=== PATIENT | male | born 1935 | race Caucasian/White ===

== ENCOUNTER 2019-04-03 12:04 | Emergency (ER) | payer MEDICARE ==
[2019-04-03] MEDS ORDERED: methylPREDNISolone SOD SUCCI 125 MG/2 ML VIAL IV STA (12:24)
[2019-04-03] MEDS ORDERED: IPRATROPIUM-ALBUTEROL 3 ML NEB INHALATION STA (12:24)
[2019-04-03] MEDS ORDERED: SODIUM CHLORIDE 0.9% 1,000 ML IV STA (12:24)
--- NOTE | 2019-04-03 12:26 | ED ---
General Adult HPI - General Chief complaint: Shortness of Breath Stated complaint: SOB Time Seen by Provider: 04/03/19 12:13 Source: patient, RN notes reviewed Mode of arrival: ambulatory Limitations: no limitations - History of Present Illness Initial comments: Patient is a pleasant 83-year-old male presenting to the emergency Department with complaints of shortness of breath. Onset of symptoms was a couple of days ago. No cough. Dyspnea does worsen somewhat with exertion. Patient does have history of similar symptoms previously associated with emphysema. Patient has been using his inhalers at home however they're not helping a whole lot. No leg pain or leg swelling. No fevers. No chest pain. - Related Data Previous Rx's Medication Instructions Recorded Levofloxacin [Levaquin] 500 mg PO DAILY #10 tab 04/03/19 predniSONE 20 mg PO BID #10 tab 04/03/19 Allergies Allergy/AdvReac Type Severity Reaction Status Date / Time No Known Allergies Allergy Verified 04/03/19 12:06 Review of Systems ROS Statement: Those systems with pertinent positive or pertinent negative responses have been documented in the HPI. ROS Other: All systems not noted in ROS Statement are negative. Constitutional: Denies: fever, chills Eyes: Denies: eye pain ENT: Denies: ear pain Respiratory: Reports: cough, dyspnea Cardiovascular: Denies: chest pain Endocrine: Denies: fatigue Gastrointestinal: Denies: abdominal pain Genitourinary: Denies: dysuria Musculoskeletal: Denies: back pain Skin: Denies: rash Neurological: Denies: weakness Past Medical History Past Medical History: COPD, Hyperlipidemia, Hypertension Past Surgical History: Coronary Bypass/CABG, Hernia Repair General Exam Limitations: no limitations General appearance: alert, in no apparent distress Head exam: Present: normocephalic Eye exam: Present: normal appearance, PERRL ENT exam: Present: normal oropharynx Neck exam: Present: normal inspection Respiratory exam: Present: wheezes, decreased breath sounds Cardiovascular Exam: Present: regular rate, normal rhythm GI/Abdominal exam: Present: soft. Absent: tenderness Extremities exam: Present: normal inspection. Absent: pedal edema, calf tenderness Neurological exam: Present: alert Psychiatric exam: Present: normal affect, normal mood Skin exam: Present: normal color Course Vital Signs 04/03/19 04/03/19 04/03/19 12:06 12:51 12:56 Temperature 97.0 F L Pulse Rate 69 67 64 Respiratory 22 Rate Blood Pressure 152/89 O2 Sat by Pulse 95 Oximetry 04/03/19 04/03/19 04/03/19 14:09 14:33 14:52 Temperature Pulse Rate 70 73 Respiratory 18 Rate Blood Pressure O2 Sat by Pulse 90 L Oximetry - Reevaluation(s) Reevaluation #1: 04/03/19 15:18 Case was earlier discussed with Dr. Henderson covering for hospital call who recommended 2 more treatments and antibiotics and reattempt ambulation at that time. This was done and patient ambulate without difficulty. Pulse ox 99% on room air. Patient states he feels fine and is comfortable with discharge home. EKG Findings - EKG Comments: EKG Findings:: Normal sinus rhythm at 67. PVC present. DE 182. QRS 132. QT 434. QTC 450. Normal axis. Q wave in lead III. No acute ST change. Medical Decision Making - Lab Data Result diagrams: 04/03/19 12:34 04/03/19 12:34 Lab Results 04/03/19 04/03/19 Range/Units 12:34 12:34 WBC 6.6 (3.8-10.6) k/uL RBC 4.84 (4.30-5.90) m/uL Hgb 14.6 (13.0-17.5) gm/dL Hct 46.5 (39.0-53.0) % MCV 96.0 (80.0-100.0) fL MCH 30.1 (25.0-35.0) pg MCHC 31.4 (31.0-37.0) g/dL RDW 13.2 (11.5-15.5) % Plt Count 162 (150-450) k/uL Neutrophils % 66 % Lymphocytes % 19 % Monocytes % 6 % Eosinophils % 6 % Basophils % 1 % Neutrophils # 4.4 (1.3-7.7) k/uL Lymphocytes # 1.3 (1.0-4.8) k/uL Monocytes # 0.4 (0-1.0) k/uL Eosinophils # 0.4 (0-0.7) k/uL Basophils # 0.0 (0-0.2) k/uL Sodium 141 (137-145) mmol/L Potassium 4.6 (3.5-5.1) mmol/L Chloride 103 (98-107) mmol/L Carbon Dioxide 30 (22-30) mmol/L Anion Gap 8 mmol/L BUN 13 (9-20) mg/dL Creatinine 0.92 (0.66-1.25) mg/dL Est GFR (CKD-EPI)AfAm 89 (>60 ml/min/1.73 sqM) Est GFR (CKD-EPI)NonAf 77 (>60 ml/min/1.73 sqM) Glucose 89 (74-99) mg/dL Calcium 9.8 (8.4-10.2) mg/dL Magnesium 2.0 (1.6-2.3) mg/dL Total Bilirubin 0.7 (0.2-1.3) mg/dL AST 24 (17-59) U/L ALT 39 (21-72) U/L Alkaline Phosphatase 58 (38-126) U/L Total Protein 7.5 (6.3-8.2) g/dL Albumin 4.0 (3.5-5.0) g/dL Disposition Clinical Impression: Pneumonia, Acute exacerbation of chronic obstructive pulmonary disease Disposition: HOME SELF-CARE Condition: Stable Instructions (If sedation given, give patient instructions): Pneumonia (ED), Emphysema (ED) Additional Instructions: Please follow-up with primary care physician in the next day or 2 for recheck. Return for difficulty breathing, fevers, weakness, worsening symptoms or any other concerns. Prescriptions have been sent to [facility] pharmacy here. Prescriptions: Levofloxacin [Levaquin] 500 mg PO DAILY #10 tab predniSONE 20 mg PO BID #10 tab Is patient prescribed a controlled substance at d/c from ED?: No Referrals: Nonstaff,Physician [Primary Care Provider] - 1-2 days Anuj Joshua MD [Medical Doctor] - 1-2 days Time of Disposition: 15:19
[2019-04-03 13:12] LABS: Basophils % (A) 1 %; Eosinophils # (A) 0.4 k/uL (0-0.7); Eosinophils % (A) 6 %; HCT 46.5 % (39.0-53.0); HGB 14.6 gm/dL (13.0-17.5); Lymphocytes # (A) 1.3 k/uL (1.0-4.8); Lymphocytes % (A) 19 %; MCH 30.1 pg (25.0-35.0); MCHC 31.4 g/dL (31.0-37.0); Mean Platelet Volume 7.8; Monocytes # (A) 0.4 k/uL (0-1.0); Monocytes % (A) 6 %; Neutrophils # (A) 4.4 k/uL (1.3-7.7); Neutrophils % (A) 66 %; Platelet Count 162 k/uL (150-450); RBC 4.84 m/uL (4.30-5.90); RDW 13.2 % (11.5-15.5); WBC 6.6 k/uL (3.8-10.6)
--- NOTE | 2019-04-03 13:20 | XR ---
EXAMINATION TYPE: XR chest 2V DATE OF EXAM: 04/03/2019 COMPARISON: NONE TECHNIQUE: PA and lateral views submitted. HISTORY: Shortness of breath FINDINGS: Left lower lobe infiltrate and small effusion. Postoperative change and cardiac device. Atherosclerot ic change aorta. No overt failure. Hypertrophic and degenerative change of the spine. IMPRESSION: 1. Left lower lobe infiltrate and small effusion.
[2019-04-03 13:25] LABS: Calcium 9.8 mg/dL (8.4-10.2); Potassium 4.6 mmol/L (3.5-5.1); Total Bilirubin 0.7 mg/dL (0.2-1.3); Total Protein 7.5 g/dL (6.3-8.2)
[2019-04-03] MEDS ORDERED: ALBUTEROL NEBULIZED 2.5 MG/3 ML INHALATION STA ×2 (14:20→14:21)
[2019-04-03] MEDS ORDERED: cefTRIAXone IN SWFI 1,000 MG/10 ML SYRINGE IVP STA (14:21)
[2019-04-03 15:19] VITALS: BP 146/87; PULSE 83; RESP 16; TEMP 98.1
== END 2019-04-03 16:18 | disposition home or self-care (01) ==
LOC: EC 12:04
DX: J44.0 Chronic obstructive pulmonary disease with (acute) lower respiratory infection (principal); J18.9 Pneumonia, unspecified organism; J44.1 Chronic obstructive pulmonary disease with (acute) exacerbation; Z79.899 Other long term (current) drug therapy
CPT/HCPCS: 99285; 96374; 96375; 96361 ×4; 36415; 94640 ×2; 93005; 80053; 83735; 85025; 87040; 71046; J2930; J0696

== ENCOUNTER 2021-08-02 14:53 | Observation (INO) | payer MEDICARE ==
--- NOTE | 2021-08-02 16:23 | ED ---
SOB HPI - General Chief Complaint: Shortness of Breath Stated Complaint: dizzy, weakness Time Seen by Provider: 08/02/21 15:00 Source: patient, EMS, RN notes reviewed Mode of arrival: EMS - History of Present Illness Initial Comments: 86-year-old male with a history of double bypass surgery a proximal a 3 years ago history of defibrillator placement was brought in by EMS today with complaints of dizziness weakness lightheadedness for last several days also some exertional dyspnea no overt chest pain no fevers chills no sweats no palpitations no focal weakness. He was noted on monitoring from EMS to have PVCs. Patient denied any palpitations or knowledge of this. No change in his diet no change in medications recently. He believes he may be slightly dehydrated as he is not been drinking much fluids today other than coffee MD Complaint: shortness of breath - Related Data Home Medications Medication Instructions Recorded Confirmed Albuterol Inhaler [Ventolin Hfa 2 puff INHALATION RT-QID PRN 08/02/21 08/02/21 Inhaler] Albuterol Nebulized [Ventolin 2.5 mg INHALATION RT-Q6H PRN 08/02/21 08/02/21 Nebulized] Aspirin EC [Ecotrin] 325 mg PO DAILY 08/02/21 08/02/21 Atorvastatin [Lipitor] 40 mg PO DAILY 08/02/21 08/02/21 Clopidogrel [Plavix] 75 mg PO DAILY 08/02/21 08/02/21 Fluticasone/Umeclidin/Vilanter 1 puff INHALATION RT-DAILY 08/02/21 08/02/21 [Trelegy Ellipta 100-62.5-25] HYDROcodone/APAP 5-325MG [[place] 1 tab PO Q8H PRN 08/02/21 08/02/21 5-325] Metoprolol Tartrate [Lopressor] 12.5 mg PO BID 08/02/21 08/02/21 Mometasone/Formoterol [Dulera 200 2 puff INHALATION RT-BID 08/02/21 08/02/21 Mcg-5 Mcg Inhaler] Pantoprazole [Protonix] 40 mg PO DAILY 08/02/21 08/02/21 Allergies Allergy/AdvReac Type Severity Reaction Status Date / Time No Known Allergies Allergy Verified 08/02/21 16:36 Review of Systems ROS Statement: Those systems with pertinent positive or pertinent negative responses have been documented in the HPI. ROS Other: All systems not noted in ROS Statement are negative. Past Medical History Past Medical History: COPD, Hyperlipidemia, Hypertension History of Any Multi-Drug Resistant Organisms: None Reported Past Surgical History: Coronary Bypass/CABG, Hernia Repair Past Psychological History: No Psychological Hx Reported Smoking Status: Former smoker Past Alcohol Use History: Daily Past Drug Use History: None Reported General Exam - General Exam Comments Initial Comments: This is a well-developed well-nourished awake alert oriented times 3 male General appearance: alert, in no apparent distress Head exam: Present: atraumatic, normocephalic, normal inspection Eye exam: Present: normal appearance, PERRL, EOMI. Absent: scleral icterus, conjunctival injection, periorbital swelling ENT exam: Present: mucous membranes dry Neck exam: Present: normal inspection, full ROM, other (No stridor JVD or bruits). Absent: tenderness, meningismus, lymphadenopathy Respiratory exam: Present: normal lung sounds bilaterally. Absent: respiratory distress, wheezes, rales, rhonchi, stridor Cardiovascular Exam: Present: regular rate, normal rhythm, normal heart sounds. Absent: systolic murmur, diastolic murmur, rubs, gallop, clicks GI/Abdominal exam: Present: soft, normal bowel sounds. Absent: distended, tenderness, guarding, rebound, rigid, bruit, pulsatile mass Extremities exam: Present: normal inspection, full ROM, normal capillary refill. Absent: tenderness, pedal edema, joint swelling, calf tenderness Back exam: Present: normal inspection Neurological exam: Present: alert, oriented X3, CN II-XII intact Psychiatric exam: Present: normal affect, normal mood Skin exam: Present: warm, dry, intact, normal color. Absent: rash Course Vital Signs 08/02/21 08/02/21 15:11 18:29 Temperature 98.1 F 97.6 F Pulse Rate 71 73 Respiratory 14 14 Rate Blood Pressure 162/95 153/80 O2 Sat by Pulse 97 97 Oximetry Medical Decision Making - Medical Decision Making I did discuss the findings with the patient no PE and imaging evidence of congestive failure does have hypokalemia suspicion for acute coronary syndrome symptoms with exertional dyspnea and light of his history. Patient be admitted to Dr. Villatoro - Lab Data Result diagrams: 08/02/21 16:26 08/02/21 16:26 Lab Results 08/02/21 08/02/21 08/02/21 Range/Units 16:26 16:26 16:26 WBC 7.0 (3.8-10.6) k/uL RBC 4.74 (4.30-5.90) m/uL Hgb 14.8 (13.0-17.5) gm/dL Hct 44.6 (39.0-53.0) % MCV 94.1 (80.0-100.0) fL MCH 31.2 (25.0-35.0) pg MCHC 33.1 (31.0-37.0) g/dL RDW 13.3 (11.5-15.5) % Plt Count 170 (150-450) k/uL MPV 9.5 Neutrophils % 75 % Lymphocytes % 14 % Monocytes % 6 % Eosinophils % 2 % Basophils % 1 % Neutrophils # 5.2 (1.3-7.7) k/uL Lymphocytes # 1.0 (1.0-4.8) k/uL Monocytes # 0.4 (0-1.0) k/uL Eosinophils # 0.2 (0-0.7) k/uL Basophils # 0.1 (0-0.2) k/uL PT 12.0 (9.0-12.0) sec INR 1.1 (<1.2) APTT 29.1 (22.0-30.0) sec D-Dimer 1.17 H (<0.60) mg/L FEU Sodium 138 (137-145) mmol/L Potassium 3.2 L (3.5-5.1) mmol/L Chloride 95 L (98-107) mmol/L Carbon Dioxide 33 H (22-30) mmol/L Anion Gap 10 mmol/L BUN 23 H (9-20) mg/dL Creatinine 0.96 (0.66-1.25) mg/dL Est GFR (CKD-EPI)AfAm 83 (>60 ml/min/1.73 sqM) Est GFR (CKD-EPI)NonAf 72 (>60 ml/min/1.73 sqM) Glucose 91 (74-99) mg/dL Plasma Lactic Acid Daniel (0.7-2.0) mmol/L Calcium 9.4 (8.4-10.2) mg/dL Magnesium 1.9 (1.6-2.3) mg/dL Total Bilirubin 0.9 (0.2-1.3) mg/dL AST 29 (17-59) U/L ALT 29 (4-49) U/L Alkaline Phosphatase 57 (38-126) U/L Troponin I (0.000-0.034) ng/mL NT-Pro-B Natriuret Pep pg/mL Total Protein 7.2 (6.3-8.2) g/dL Albumin 4.1 (3.5-5.0) g/dL 08/02/21 08/02/21 08/02/21 Range/Units 16:26 16:26 16:26 WBC (3.8-10.6) k/uL RBC (4.30-5.90) m/uL Hgb (13.0-17.5) gm/dL Hct (39.0-53.0) % MCV (80.0-100.0) fL MCH (25.0-35.0) pg MCHC (31.0-37.0) g/dL RDW (11.5-15.5) % Plt Count (150-450) k/uL MPV Neutrophils % % Lymphocytes % % Monocytes % % Eosinophils % % Basophils % % Neutrophils # (1.3-7.7) k/uL Lymphocytes # (1.0-4.8) k/uL Monocytes # (0-1.0) k/uL Eosinophils # (0-0.7) k/uL Basophils # (0-0.2) k/uL PT (9.0-12.0) sec INR (<1.2) APTT (22.0-30.0) sec D-Dimer (<0.60) mg/L FEU Sodium (137-145) mmol/L Potassium (3.5-5.1) mmol/L Chloride (98-107) mmol/L Carbon Dioxide (22-30) mmol/L Anion Gap mmol/L BUN (9-20) mg/dL Creatinine (0.66-1.25) mg/dL Est GFR (CKD-EPI)AfAm (>60 ml/min/1.73 sqM) Est GFR (CKD-EPI)NonAf (>60 ml/min/1.73 sqM) Glucose (74-99) mg/dL Plasma Lactic Acid Daniel 1.4 (0.7-2.0) mmol/L Calcium (8.4-10.2) mg/dL Magnesium (1.6-2.3) mg/dL Total Bilirubin (0.2-1.3) mg/dL AST (17-59) U/L ALT (4-49) U/L Alkaline Phosphatase (38-126) U/L Troponin I <0.012 (0.000-0.034) ng/mL NT-Pro-B Natriuret Pep 2040 pg/mL Total Protein (6.3-8.2) g/dL Albumin (3.5-5.0) g/dL - EKG Data -: EKG Interpreted by Me EKG shows normal: sinus rhythm EKG Comments: Sinus rhythm rate 77 appear interval 195 QRS duration 137 QT since QTC 434/465 evidence a multifocal PVCs interventricular conduction delay - Radiology Data Radiology results: report reviewed (Imaging reviewed evidence of pulmonary vascular congestion), image reviewed Disposition Clinical Impression: CHF (congestive heart failure), Exertional dyspnea, Hypokalemia, Premature ventricular contractions, Pleural effusion, left Disposition: ADMITTED IP TO THIS HOSP Condition: Fair Referrals: Dimitry Barajas MD [Primary Care Provider] - 1-2 days Decision Date: 08/02/21 Decision Time: 18:40
--- NOTE | 2021-08-02 16:48 | XR ---
EXAMINATION TYPE: XR chest 2V DATE OF EXAM: 08/02/2021 COMPARISON: Chest x-ray April 03, 2019 HISTORY: Shortness of breath TECHNIQUE: Frontal and lateral views of the chest are obtained. FINDINGS: Overlying sternal wires and mediastinal clips are redemonstrated. Persisting cardiomegaly w ith new dual lead pacemaker/defibrillator. Chronic parenchymal changes bilaterally redemonstrated wit hout new focal airspace opacity or pneumothorax seen. Chronic lateral left basilar opacity could refl ect pleural thickening or possible small effusion is redemonstrated and stable. IMPRESSION: Chronic changes and cardiomegaly without new acute pulmonary process.
[2021-08-02 16:53] LABS: Basophils # (A) 0.1 k/uL (0-0.2); Basophils % (A) 1 %; Eosinophils # (A) 0.2 k/uL (0-0.7); Eosinophils % (A) 2 %; HCT 44.6 % (39.0-53.0); HGB 14.8 gm/dL (13.0-17.5); Lymphocytes % (A) 14 %; MCH 31.2 pg (25.0-35.0); MCHC 33.1 g/dL (31.0-37.0); MCV 94.1 fL (80.0-100.0); Mean Platelet Volume 9.5; Monocytes # (A) 0.4 k/uL (0-1.0); Monocytes % (A) 6 %; Neutrophils # (A) 5.2 k/uL (1.3-7.7); Neutrophils % (A) 75 %; Platelet Count 170 k/uL (150-450); RBC 4.74 m/uL (4.30-5.90); RDW 13.3 % (11.5-15.5)
[2021-08-02 17:02] LABS: Albumin 4.1 g/dL (3.5-5.0); Calcium 9.4 mg/dL (8.4-10.2); Magnesium 1.9 mg/dL (1.6-2.3); Potassium 3.2 mmol/L (3.5-5.1); Total Bilirubin 0.9 mg/dL (0.2-1.3); Total Protein 7.2 g/dL (6.3-8.2)
[2021-08-02 17:11] LABS: INR 1.1 (<1.2); Partial Thromboplastin Time 29.1 sec (22.0-30.0)
--- NOTE | 2021-08-02 17:55 | CT ---
EXAMINATION TYPE: CT angio chest DATE OF EXAM: 08/02/2021 COMPARISON: Chest x-ray earlier today. HISTORY: Elevated d-dimer. CT DLP: 293.5 mGycm. Automated Exposure Control for Dose Reduction was Utilized. CONTRAST: CTA scan of the thorax is performed with IV Contrast, patient injected with 100 mL of Isovue 370, pul monary embolism protocol. MIP Images are created on CT scanner and reviewed. FINDINGS: LUNGS: Background moderate underlying emphysematous change greatest in the upper lungs. Small to tiny left pleural effusion and/or pleural thickening. Associated focal scarring and/or atelectasis construction rep ior left lung base. Subtle left basilar volume loss. Right lung is clear. No pneumothorax seen bilate rally. MEDIASTINUM: There is satisfactory enhancement of the pulmonary artery and its branches, there is no CT evidence for pulmonary embolism. Ascending aortic aneurysm up to 4.9 cm There are no greater than 1 cm mediastinal lymph nodes. Cardiomegaly with moderate left ventricular dilatation. Post CABG nelson ges with mediastinal clips and sternal wires. There is dual-lead pacemaker/defibrillator. OTHER: Reflux of contrast into IVC consistent with degree of right heart failure. Demineralization w ith underlying scoliosis and multilevel spurring in the thoracolumbar spine.. IMPRESSION: 1. No CT evidence for acute pulmonary embolism. 2. Moderate emphysematous change and cardiomegaly with small to tiny left pleural effusion and/or ple ural thickening. No acute pulmonary process.
[2021-08-02] MEDS ORDERED: POTASSIUM CHLORIDE 20 MEQ in WATER FOR INJECTION 1 100ML.BAG IVPB STA (18:54)
[2021-08-02] MEDS ORDERED: POTASSIUM CHLORIDE ER 20 MEQ TAB.ER PO STA (18:54)
[2021-08-02] MEDS ORDERED: HYDROcodone/APAP 5-325MG 1 EACH TAB PO PRN (19:17)
[2021-08-02] MEDS ORDERED: ALBUTEROL NEBULIZED 2.5 MG/3 ML INHALATION PRN (19:17)
[2021-08-02] MEDS ORDERED: FUROSEMIDE 10 MG/ML 4 ML VIAL IV STA (19:18)
--- NOTE | 2021-08-02 19:19 | ED ---
Medical Decision Making - Lab Data Result diagrams: 08/02/21 16:26 08/02/21 16:26 Lab Results 08/02/21 08/02/21 08/02/21 Range/Units 16:26 16:26 16:26 WBC 7.0 (3.8-10.6) k/uL RBC 4.74 (4.30-5.90) m/uL Hgb 14.8 (13.0-17.5) gm/dL Hct 44.6 (39.0-53.0) % MCV 94.1 (80.0-100.0) fL MCH 31.2 (25.0-35.0) pg MCHC 33.1 (31.0-37.0) g/dL RDW 13.3 (11.5-15.5) % Plt Count 170 (150-450) k/uL MPV 9.5 Neutrophils % 75 % Lymphocytes % 14 % Monocytes % 6 % Eosinophils % 2 % Basophils % 1 % Neutrophils # 5.2 (1.3-7.7) k/uL Lymphocytes # 1.0 (1.0-4.8) k/uL Monocytes # 0.4 (0-1.0) k/uL Eosinophils # 0.2 (0-0.7) k/uL Basophils # 0.1 (0-0.2) k/uL PT 12.0 (9.0-12.0) sec INR 1.1 (<1.2) APTT 29.1 (22.0-30.0) sec D-Dimer 1.17 H (<0.60) mg/L FEU Sodium 138 (137-145) mmol/L Potassium 3.2 L (3.5-5.1) mmol/L Chloride 95 L (98-107) mmol/L Carbon Dioxide 33 H (22-30) mmol/L Anion Gap 10 mmol/L BUN 23 H (9-20) mg/dL Creatinine 0.96 (0.66-1.25) mg/dL Est GFR (CKD-EPI)AfAm 83 (>60 ml/min/1.73 sqM) Est GFR (CKD-EPI)NonAf 72 (>60 ml/min/1.73 sqM) Glucose 91 (74-99) mg/dL Plasma Lactic Acid Daniel (0.7-2.0) mmol/L Calcium 9.4 (8.4-10.2) mg/dL Magnesium 1.9 (1.6-2.3) mg/dL Total Bilirubin 0.9 (0.2-1.3) mg/dL AST 29 (17-59) U/L ALT 29 (4-49) U/L Alkaline Phosphatase 57 (38-126) U/L Troponin I (0.000-0.034) ng/mL NT-Pro-B Natriuret Pep pg/mL Total Protein 7.2 (6.3-8.2) g/dL Albumin 4.1 (3.5-5.0) g/dL 08/02/21 08/02/21 08/02/21 Range/Units 16:26 16:26 16:26 WBC (3.8-10.6) k/uL RBC (4.30-5.90) m/uL Hgb (13.0-17.5) gm/dL Hct (39.0-53.0) % MCV (80.0-100.0) fL MCH (25.0-35.0) pg MCHC (31.0-37.0) g/dL RDW (11.5-15.5) % Plt Count (150-450) k/uL MPV Neutrophils % % Lymphocytes % % Monocytes % % Eosinophils % % Basophils % % Neutrophils # (1.3-7.7) k/uL Lymphocytes # (1.0-4.8) k/uL Monocytes # (0-1.0) k/uL Eosinophils # (0-0.7) k/uL Basophils # (0-0.2) k/uL PT (9.0-12.0) sec INR (<1.2) APTT (22.0-30.0) sec D-Dimer (<0.60) mg/L FEU Sodium (137-145) mmol/L Potassium (3.5-5.1) mmol/L Chloride (98-107) mmol/L Carbon Dioxide (22-30) mmol/L Anion Gap mmol/L BUN (9-20) mg/dL Creatinine (0.66-1.25) mg/dL Est GFR (CKD-EPI)AfAm (>60 ml/min/1.73 sqM) Est GFR (CKD-EPI)NonAf (>60 ml/min/1.73 sqM) Glucose (74-99) mg/dL Plasma Lactic Acid Daniel 1.4 (0.7-2.0) mmol/L Calcium (8.4-10.2) mg/dL Magnesium (1.6-2.3) mg/dL Total Bilirubin (0.2-1.3) mg/dL AST (17-59) U/L ALT (4-49) U/L Alkaline Phosphatase (38-126) U/L Troponin I <0.012 (0.000-0.034) ng/mL NT-Pro-B Natriuret Pep 2040 pg/mL Total Protein (6.3-8.2) g/dL Albumin (3.5-5.0) g/dL Critical Care Time Critical Care Time: Yes Total Critical Care Time: 39 Critical Care Time: Critical care time including initial presentation with history physical labs x- rays reevaluation patient discussed with the patient regarding findings discus sed with the main physician admission orders documentation the above patient did require IV replacement of potassium also IV Lasix. Disposition Clinical Impression: CHF (congestive heart failure), Exertional dyspnea, Hypokalemia, Premature ventricular contractions, Pleural effusion, left Disposition: ADMITTED IP TO THIS HOSP Condition: Fair Referrals: Dimitry Barajas MD [Primary Care Provider] - 1-2 days
[2021-08-02] MEDS ORDERED: MOMETASONE INHALATION SCH (20:00)
[2021-08-02] MEDS ORDERED: FORMOTEROL INHALATION SCH (20:00)
[2021-08-02] MEDS: METOPROLOL TARTRATE 12.5 MG TAB PO SCH (20:44)
--- NOTE | 2021-08-02 21:31 | P.HPIM ---
History of Present Illness H&P Date: 08/02/21 Chief Complaint: exertional dyspnea 86 year old male with history of CAD s/p CABG s/p ICD patient presenting with complaint of generalized fatigue and weakness, few days history (3) of exertional dyspnea. he denies orthopnea, PNDs, cough, chest pain, dizziness, fever, chills. sore throat, URI symptoms. however, he has been extremely worried about the well being of his daughter, he lives in [place], and has recently been in [facility] to take care of his sick daughter, who is currently hospitalized . he has been doing a lot for her, and feels like he had exhausted himself, he has not been paying attention to his health and decrease his PO intake as he is very busy with her. He has been mainly drinking coffee these days. he is coming in today due to worsening exertional dyspnea, that he is tired just by moving around the house, which is very unusual for him, as he, up until recently , used to ride his indoor bike daily. he is very active at baseline, lives alone, still ddrives, takes care of his own bills, shopping, and cooking. in the ED, he was found to have tiny pleural effusion , elevated d dimer, with negative chest CTA for acute PE, elevated pro BNP and tace leg edema Review of Systems Pertinent positives as noted in HPI. All other systems were reviewed and are negative Past Medical History Past Medical History: COPD, Hyperlipidemia, Hypertension History of Any Multi-Drug Resistant Organisms: None Reported Past Surgical History: Coronary Bypass/CABG, Hernia Repair Past Psychological History: No Psychological Hx Reported Smoking Status: Former smoker Past Alcohol Use History: Daily Past Drug Use History: None Reported Medications and Allergies Home Medications Medication Instructions Recorded Confirmed Type Albuterol Inhaler [Ventolin Hfa 2 puff INHALATION RT-QID PRN 08/02/21 08/02/21 History Inhaler] Albuterol Nebulized [Ventolin 2.5 mg INHALATION RT-Q6H PRN 08/02/21 08/02/21 History Nebulized] Aspirin EC [Ecotrin] 325 mg PO DAILY 08/02/21 08/02/21 History Atorvastatin [Lipitor] 40 mg PO DAILY 08/02/21 08/02/21 History Clopidogrel [Plavix] 75 mg PO DAILY 08/02/21 08/02/21 History Fluticasone/Umeclidin/Vilanter 1 puff INHALATION RT-DAILY 08/02/21 08/02/21 History [Trelegy Ellipta 100-62.5-25] HYDROcodone/APAP 5-325MG [[place] 1 tab PO Q8H PRN 08/02/21 08/02/21 History 5-325] Metoprolol Tartrate [Lopressor] 12.5 mg PO BID 08/02/21 08/02/21 History Mometasone/Formoterol [[place] 200 2 puff INHALATION RT-BID 08/02/21 08/02/21 History Mcg-5 Mcg Inhaler] Pantoprazole [Protonix] 40 mg PO DAILY 08/02/21 08/02/21 History Allergies Allergy/AdvReac Type Severity Reaction Status Date / Time No Known Allergies Allergy Verified 08/02/21 16:36 Physical Exam Vitals: Vital Signs Temp Pulse Resp BP Pulse Ox 08/02/21 18:29 97.6 F 73 14 153/80 97 08/02/21 15:11 98.1 F 71 14 162/95 97 Intake and Output 08/02/21 08/02/21 08/02/21 06:59 14:59 22:59 Other: Weight 72.575 kg Constitutional: No acute distress, conversant, pleasant Eyes: Anicteric sclerae, moist conjunctiva, Pupils equal round reactive to light ENMT: NC/AT Oropharynx clear, no erythema, or exudates Neck: Supple, no masses, or JVD No carotid bruits No thyromegaly Lungs: Good breath sounds bilaterally, notable inspiratory rales bilateral lung basis Clear to percussion Normal respiratory effort, no accessory muscle use Cardiovascular: Heart regular in rate and rhythm, No murmurs, gallops, or rubs Trace bilateral peripheral edema Abdominal: Soft Nontender, no guarding, rebound or rigidity Abdomen moving with respiration Normoactive bowel sounds No hepatomegaly, No splenomegaly No palpable mass No abdominal wall hernia noted Skin: Normal temperature, tone, texture, turgor No induration No subcutaneous nodules No rash, lesions No ulcers Extremities: No digital cyanosis No clubbing Pedal pulses intact and symmetrical Radial pulses intact and symmetrical No calf tenderness Psychiatric: Alert and oriented to person, place and time Appropriate affect fair judgement Neuro Muscles Strength 5/5 in all 4 extremities Sensation to light touch grossly present throughout Cranial nerves II-XII grossly intact No focal sensory deficits Lymphatics: no palpable cervical or supraclavicular , or inguinal lymph nodes Results CBC & Chem 7: 08/02/21 16:26 08/02/21 16:26 Labs: Abnormal Lab Results - Last 24 Hours (Table) 08/02/21 08/02/21 Range/Units 16:26 16:26 D-Dimer 1.17 H (<0.60) mg/L FEU Potassium 3.2 L (3.5-5.1) mmol/L Chloride 95 L (98-107) mmol/L Carbon Dioxide 33 H (22-30) mmol/L BUN 23 H (9-20) mg/dL Assessment and Plan Assessment: Progressive exertional dyspnea rule out worsening congestive heart failure History of CAD status post CABG and ICD Trend troponins currently negative Aspirin, statin, Plavix IV Lasix Cardiology consult nightclub manager Monitor vital signs Fall precautions Supplemental oxygen as needed Hypokalemia Replace follow-up levels Full code Heparin subcu 3 times a day for DVT prophylaxis Anticipated length of stay less than 2 midnights
[2021-08-03] MEDS: HEPARIN SODIUM,PORCINE/PF 5,000 UNIT/0.5 ML SYRINGE SQ SCH ×4 (00:13→20:46)
[2021-08-03] MEDS: FUROSEMIDE 10 MG/ML 4 ML VIAL IV SCH ×2 (06:33→17:11)
[2021-08-03] MEDS: PANTOPRAZOLE 40 MG TABLET PO SCH (07:44)
[2021-08-03] MEDS: CLOPIDOGREL 75 MG TAB PO SCH (07:44)
[2021-08-03] MEDS: ASPIRIN 325 MG TAB PO SCH (07:44)
[2021-08-03] MEDS: ATORVASTATIN 40 MG TAB PO SCH (07:45)
[2021-08-03] MEDS ORDERED: NON FORMULARY DRUG (Fluticasone/Umeclidin/Vilanter [Trelegy Ellipta 100-62.5-25] 1 EACH Bl INHALATION SCH (08:00)
[2021-08-03] MEDS: IPRATROPIUM 0.5 MG/2.5 ML NEBU INHALATION SCH ×4 (08:04→19:57)
[2021-08-03] MEDS: SYMBICORT 160-4.5 MCG INHALER INHALATION SCH ×2 (08:08→19:57)
[2021-08-03 10:05] LABS: African American GFR (CKD) 70.1 (60.0-200.0); Anion Gap 11.8 mmol/L (10.00-18.00); BUN/Creat Ratio 20.27 Ratio (12.00-20.00); Blood Urea Nitrogen 22.3 mg/dL (9.0-27.0); Calcium 9.4 mg/dL (8.7-10.3); Carbon Dioxide 30.2 mmol/L (20.0-27.5); Non-African American GFR(CKD) 60.5 (60.0-200.0); Potassium 3.3 mmol/L (3.5-5.5)
--- NOTE | 2021-08-03 10:08 | P.CRDCN ---
History of Present Illness Consult date: 08/03/21 History of present illness: HISTORY OF PRESENT ILLNESS: This is a 86-year-old male with a past medical history significant for hypertension, hyperlipidemia, GERD, congestive heart failure, and coronary artery disease with previous CABG 2 vessels (patient thinks 2-3 years ago). Patient follows in the office with Dr. Hunt in [place]. We have been asked to see the patient in consultation for congestive heart failure. Patient examined at the bedside. Patient states over the past 2-3 days he has been feeling short of breath. He states his shortness of breath is only with exertion. He denies having any chest pain or pressure. Denies any fever or chills. He also reports he has been feeling lightheaded and dizzy. He denies any syncopal episodes. The patient reports he has been drinking adequate water however he also reports drinking a lot of coffee over the past few days. He also believes that he has had increased salt intake over the past week. He does report having some increased lower extremity edema and states he started taking his Lasix again one week ago when he noticed some increased swelling in his ankles. Patient states he takes a diuretic at home. He believes that it is Lasix. He is unsure of the dosage however. He states he only takes this as needed and does not take it daily. 6 * EKG reveals sinus mechanism with PVCs * Chest xray chronic changes and cardiomegaly without new acute pulmonary process * Chest CTA: No evidence for acute pulmonary embolism. Moderate emphysematous and cardia megaly with small to tiny left pleural effusion and/or pleural thickening. No acute pulmonary process * Laboratory data: WBC 7.0. Hemoglobin 14.8. Platelet count 170. D-dimer 1.17. Sodium 138. Potassium 3.2. BUN 23. Creatinine 0.96. Lactic acid 1.4. Troponin negative 3. ProBNP 2039. * Current home cardiac medications include Lipitor 40 mg daily, Plavix 75 mg daily, metoprolol tartrate 12.5 mg twice a day. Patient also reports taking a water pill at home as needed but he is unsure of the name or the dosage. REVIEW OF SYSTEMS: At the time of my exam: CONSTITUTIONAL: Denies fever or chills. HEENT: Denies blurred vision, vision changes, or eye pain. Denies hemoptysis CARDIOVASCULAR: Denies chest pain. Denies orthopnea. Denies PND. Denies palpitations RESPIRATORY: Denies shortness of breath. GASTROINTESTINAL: Denies abdominal pain. Denies nausea or vomiting. HEMATOLOGIC: Denies bleeding disorders. GENITOURINARY: Denies any blood in urine. SKIN: Denies pruitis. Denies rash. PHYSICAL EXAM: VITAL SIGNS: Reviewed. GENERAL: Well-developed in no acute distress. HEENT: Head is normocephalic. Pupils are equal, round. Sclerae anicteric. Mucous membranes of the mouth are moist. Neck supple. No JVD or thyromegaly LUNGS: Respirations even and unlabored. Lungs with bibasilar crackles. HEART: Regular rate and rhythm. S1 and S2 heard. Systolic murmur noted. ABDOMEN: Soft. Nondistended. Nontender. EXTREMITIES: Normal range of motion. No clubbing or cyanosis. Peripheral pulses intact. Trace lower extremity edema NEUROLOGIC: Awake and alert. Oriented x 3. ASSESSMENT: Dizziness Exertional shortness of breath Acute on chronic congestive heart failure, type unknown Coronary artery disease with previous CABG 2 vessels Hypertension Hyperlipidemia Hypokalemia Elevated d-dimer, CT negative for PE PLAN: Obtain 2-D echo to assess cardiac structure and function Resume home cardiac medications Continue IV Lasix Daily weights Accurate I&O Obtain records from patient's primary regulatory services consultant Further recommendations pending patient's course Nurse practitioner note has been reviewed by physician. Signing provider agrees with the documented findings, assessment, and plan of care. Past Medical History Past Medical History: Coronary Artery Disease (CAD), COPD, GERD/Reflux, Hyperlipidemia, Hypertension Additional Past Medical History / Comment(s): Low back fracture approximately 3 years ago and now has occasional low back pain, pt is on plavix and cannot recall reason. History of Any Multi-Drug Resistant Organisms: None Reported Past Surgical History: AICD, Appendectomy, Coronary Bypass/CABG, Heart Catheterization, Hernia Repair Additional Past Surgical History / Comment(s): 2 vessel CABG about 2-3 years ago at [facility], AICD approximately 18 months ago at [facility], R inguinal and R lower abdominal hernia repairs, colonoscopy. Past Anesthesia/Blood Transfusion Reactions: No Reported Reaction Type of Cardiac Device: AICD Device Placement Date:: unkn Smoking Status: Former smoker - Past Family History Father Family Medical History: Cancer Additional Family Medical History / Comment(s): Rectal cancer Mother Family Medical History: Myocardial Infarction ([place]) Additional Family Medical History / Comment(s): Mother of a Mi at the age of 82 yrs. Medications and Allergies Home Medications Medication Instructions Recorded Confirmed Type Albuterol Inhaler [Ventolin Hfa 2 puff INHALATION RT-QID PRN 08/02/21 08/02/21 History Inhaler] Albuterol Nebulized [Ventolin 2.5 mg INHALATION RT-Q6H PRN 08/02/21 08/02/21 History Nebulized] Aspirin EC [Ecotrin] 325 mg PO DAILY 08/02/21 08/02/21 History Atorvastatin [Lipitor] 40 mg PO DAILY 08/02/21 08/02/21 History Clopidogrel [Plavix] 75 mg PO DAILY 08/02/21 08/02/21 History Fluticasone/Umeclidin/Vilanter 1 puff INHALATION RT-DAILY 08/02/21 08/02/21 History [Trelegy Ellipta 100-62.5-25] HYDROcodone/APAP 5-325MG [[place] 1 tab PO Q8H PRN 08/02/21 08/02/21 History 5-325] Metoprolol Tartrate [Lopressor] 12.5 mg PO BID 08/02/21 08/02/21 History Mometasone/Formoterol [[place] 200 2 puff INHALATION RT-BID 08/02/21 08/02/21 History Mcg-5 Mcg Inhaler] Pantoprazole [Protonix] 40 mg PO DAILY 08/02/21 08/02/21 History Allergies Allergy/AdvReac Type Severity Reaction Status Date / Time No Known Allergies Allergy Verified 08/02/21 16:36 Physical Exam Vitals: Vital Signs Temp Pulse Resp BP Pulse Ox 08/03/21 09:17 18 08/03/21 08:15 71 H 08/03/21 08:05 69 08/03/21 08:00 71 H 08/03/21 06:00 74 18 143/68 95 08/03/21 03:00 70 20 158/71 94 L 08/02/21 22:34 97.9 F 72 14 167/95 95 08/02/21 18:29 97.6 F 73 14 153/80 97 08/02/21 15:11 98.1 F 71 14 162/95 97 Intake and Output 08/02/21 08/03/21 08/03/21 22:59 06:59 14:59 Output Total 500 500 Balance -500 -500 Output: Urine 500 500 Other: # Voids 3 Weight 72.575 kg 72.575 kg Results 08/02/21 16:26 08/02/21 16:26 Cardiac Enzymes 08/02/21 08/02/21 08/02/21 Range/Units 16:26 16:26 20:28 AST 29 (17-59) U/L Troponin I <0.012 <0.012 (0.000-0.034) ng/mL 08/02/21 Range/Units 22:32 AST (17-59) U/L Troponin I <0.012 (0.000-0.034) ng/mL Coagulation 08/02/21 Range/Units 16:26 PT 12.0 (9.0-12.0) sec APTT 29.1 (22.0-30.0) sec CBC 08/02/21 Range/Units 16:26 WBC 7.0 (3.8-10.6) k/uL RBC 4.74 (4.30-5.90) m/uL Hgb 14.8 (13.0-17.5) gm/dL Hct 44.6 (39.0-53.0) % Plt Count 170 (150-450) k/uL Comprehensive Metabolic Panel 08/02/21 Range/Units 16:26 Sodium 138 (137-145) mmol/L Potassium 3.2 L (3.5-5.1) mmol/L Chloride 95 L (98-107) mmol/L Carbon Dioxide 33 H (22-30) mmol/L BUN 23 H (9-20) mg/dL Creatinine 0.96 (0.66-1.25) mg/dL Glucose 91 (74-99) mg/dL Calcium 9.4 (8.4-10.2) mg/dL AST 29 (17-59) U/L ALT 29 (4-49) U/L Alkaline Phosphatase 57 (38-126) U/L Total Protein 7.2 (6.3-8.2) g/dL Albumin 4.1 (3.5-5.0) g/dL Current Medications Generic Name Dose Route Start Last Admin Trade Name Freq PRN Reason Stop Dose Admin Hydrocodone Bitart/Acetaminophen 1 each 08/02/21 19:17 08/02/21 20:44 Hydrocodone/Apap 5-325mg 1 Each Tab PO 1 each Q8H PRN Administration Pain Albuterol Sulfate 2.5 mg 08/02/21 19:17 Albuterol Nebulized 2.5 Mg/3 Ml INHALATION RT-Q6H PRN Shortness Of Breath Aspirin 325 mg 08/03/21 09:00 08/03/21 07:44 Aspirin 325 Mg Tab PO 325 mg DAILY JOEY Administration Atorvastatin Calcium 40 mg 08/03/21 09:00 08/03/21 07:45 Atorvastatin 40 Mg Tab PO 40 mg DAILY JOEY Administration Budesonide/Formoterol Fumarate 2 puff 08/03/21 08:00 08/03/21 08:08 Symbicort 160-4.5 Mcg Inhaler INHALATION 2 puff RT-BID JOEY Administration Clopidogrel Bisulfate 75 mg 08/03/21 09:00 08/03/21 07:44 Clopidogrel 75 Mg Tab PO 75 mg DAILY JOEY Administration Furosemide 40 mg 08/03/21 06:00 08/03/21 06:33 Furosemide 10 Mg/Ml 4 Ml Vial IV 40 mg Q12H JOEY Administration Heparin Sodium (Porcine) 5,000 unit 08/03/21 00:00 08/03/21 07:44 Heparin Sodium,Porcine/Pf 5,000 Unit/0.5 Ml Syringe SQ 5,000 unit Q8HR JOEY Administration Ipratropium [place] 0.5 mg 08/03/21 08:00 08/03/21 08:04 Ipratropium 0.5 Mg/2.5 Ml Nebu INHALATION 0.5 mg RT-QID JOEY Administration Metoprolol Tartrate 12.5 mg 08/02/21 21:00 08/02/21 20:44 Metoprolol Tartrate 12.5 Mg Tab PO 12.5 mg BID JOEY Administration Pantoprazole Sodium 40 mg 08/03/21 09:00 08/03/21 07:44 Pantoprazole 40 Mg Tablet PO 40 mg DAILY JOEY Administration Intake and Output 08/02/21 08/03/21 08/03/21 22:59 06:59 14:59 Output Total 500 500 Balance -500 -500 Output: Urine 500 500 Other: # Voids 3 Weight 72.575 kg 72.575 kg Patient Weight 08/04/21 06:59 Weight 72.575 kg 08/02/21 16:26 08/02/21 16:26
--- NOTE | 2021-08-03 12:00 | ECHOF ---
Referral Reason:Heart Failure MEASUREMENTS -------- HEIGHT: 182.9 cm WEIGHT: 72.6 kg BP: RVIDd: 2.9 cm (< 3.3) IVSd: 1.3 cm (0.6 - 1.1) LVIDd: 4.5 cm (3.9 - 5.3) LVPWd: 1.3 cm (0.6 - 1.1) IVSs: 1.6 cm LVIDs: 4.5 cm LVPWs: 1.5 cm LA Diam: 3.8 cm (2.7 - 3.8) LAESV Index (A-L): 37.97 ml/m Ao Diam: 3.2 cm (2.0 - 3.7) AV Cusp: 1.5 cm (1.5 - 2.6) LA Diam: 4.6 cm (2.7 - 3.8) MV EXCURSION: 14.924 mm (> 18.000) MV EF SLOPE: 87 mm/s (70 - 150) EPSS: 1.2 cm MV E Jose: 0.49 m/s MV DecT: 222 ms MV A Jose: 1.07 m/s MV E/A Ratio: 0.46 AR PHT: 892 ms RAP: 5.00 mmHg RVSP: 10.82 mmHg FINDINGS -------- Sinus rhythm. This was a technically adequate study. The left ventricular size is normal. There is mild concentric left ventricular hypertrophy. Overa ll left ventricular systolic function is moderately impaired with, an EF between 35 - 40 %. Basal i nferior LV wall motion is hypokinetic. Basal inferoseptal LV wall motion is hypokinetic. Mid in ferior LV wall motion is hypokinetic. Apical inferior LV wall motion is hypokinetic. The right ventricle is normal in size. LA is moderately dilated 34-39 ml/m2 The right atrial size is normal. There is moderate aortic valve sclerosis. There is znig-ih-imwyimha aortic regurgitation. Mild mitral annular calcification present. Mild mitral regurgitation is present. The tricuspid valve appears structurally normal. Mild tricuspid regurgitation present. Right vent ricular systolic pressure is normal at < 35 mmHg. Trace/mild (physiologic) pulmonic regurgitation. The aortic root size is normal. There is no pericardial effusion. CONCLUSIONS -------- 1. There is mild concentric left ventricular hypertrophy. 2. Overall left ventricular systolic function is moderately impaired with, an EF between 35 - 40 %. 3. Basal inferior LV wall motion is hypokinetic. 4. Basal inferoseptal LV wall motion is hypokinetic. 5. Mid inferior LV wall motion is hypokinetic. 6. Apical inferior LV wall motion is hypokinetic. 7. LA is moderately dilated 34-39 ml/m2 8. There is moderate aortic valve sclerosis. 9. There is ekgy-ft-plgeiaaf aortic regurgitation. 10. Mild mitral regurgitation is present. 11. Mild tricuspid regurgitation present. 12. Trace/mild (physiologic) pulmonic regurgitation. 13. There is no pericardial effusion. FIELD COURT RESEARCHER: Linnea Mcgee RDCS
[2021-08-03 13:26] VITALS: BMI 21.2
[2021-08-03] MEDS ORDERED: POTASSIUM CHLORIDE ER 20 MEQ TAB.ER PO STA (17:18)
--- NOTE | 2021-08-03 17:30 | P.PN ---
Subjective Progress Note Date: 08/03/21 Principal diagnosis: Exertional dyspnea Hospital course: Patient is a very pleasant 86-year-old male with a past medical history of CAD status post CABG and ICD placement, hypertension, hyperlipidemia, and COPD not on home oxygen dependent. He presented to the emergency department with a chief complaint of fatigue and worsening shortness of breath with exertion. Patient reported this began approximately 3-4 days ago and progressively worsened. Patient denied experiencing any shortness of breath at rest or any other complaints including cough, congestion, sore throat, headache, lightheadedness, dizziness, fevers, chills, diaphoresis, chest pain, palpitations, nausea, or vomiting. In the emergency department he was seen and fully evaluated. Chest x-ray was completed showing chronic changes and cardiomegaly negative for acute cardiopulmonary process. EKG revealing normal sinus rhythm at 77 bpm with frequent PVCs. Labs obtained with CBC unremarkable, BMP revealing hypokalemia with potassium of 3.2 hypochloremia with chloride of 95, and hypercarbia with carbon dioxide of 33. D-dimer was elevated at 1.17 and troponin was negative at less than 0.012. ProBNP elevated at 2040. CTA of chest negative for pulmonary emboli showing moderate emphysematous changes and cardiomegaly. Patient was admitted under our services with consultation to cardiology. Echocardiogram completed revealing moderately impaired EF of 35-40% with diffuse left ventricular hypokinesis, moderately dilated left atrium, moderate aortic valve sclerosis, and mild to moderate aortic regurgitation. Physical exam: Patient seen and fully evaluated at bedside this morning. He has had a total of 500 mL of output throughout the night. He reports feeling slightly better but continues to be short of breath with exertion. Echocardiogram revealing impaired EF of 35-40% resulting in diagnosis of acute on chronic systolic heart failure. Patient transferred to inpatient status at this time as he will require a longer duration of IV diuretics. Troponins were trended and remained negative. Patient denies having any chest pain, palpitations, cough, or congestion at this time. Vital signs reviewed and stable. General: Nontoxic, no distress and appears stated age. Derm: Skin warm and dry, normal coloration for ethnicity. Head: Atraumatic, normocephalic and symmetric. Eyes: EOMs intact, no lid lag, and anicteric sclera Mouth: no lip lesions, mucus membranes moist Cardiovascular: regular rate and rhythm with normal S1S2, systolic murmur, positive posterior tibial pulses bilaterally, and cap refill < 2 seconds. ICD left anterior chest. Lungs: Respirations even, regular, and unlabored on room air. Lungs CTA bilaterally, no rhonchi, no rales, no wheezing, and no accessory muscle usage. Abdominal: soft, nontender to palpation, no guarding, no appreciable organomegaly Ext: ROM intact. No gross muscle atrophy, no edema, no contractures Neuro: Speech clear, face symmetrical and CN II-XII grossly intact with no noted focal neuro deficits Psych: Alert and oriented to person, place, time, and situation. Appropriate and pleasant affect. Assessment and Plan of Care: Acute exacerbation of chronic systolic heart failure EF of 35-40% Generalized Fatigue and dizziness Coronary artery disease status post CABG 2 and ICD placement Hypertension Hyperlipidemia -Cardiology following, awaiting cardiac records from Dr. Hunt office in [place]. Appreciate further recommendations. -Telemetry monitoring -Troponins negative < 0.0123 draws -ProBNP 2039 -Daily weights -Close monitoring of I's and O's -Cardiac diet -Lasix 40 mg IVP every 12 hours -Continue daily medication regimen with Aspirin, atorvastatin, Plavix and meto prolol -Continued close monitoring of electrolytes while diuresing. Hypokalemia -Replaced, continue to monitor with repeat a.m. labs and replace abnormal kerri ctro-values as needed. Elevated d-dimer, CTA negative for pulmonary emboli CODE STATUS: Full code DVT prophylaxis: Heparin Discussed with: Patient and RN Anticipated discharge date: Clinical course to determine Anticipated discharge place: Home A total of 40 minutes was spent on the care of this complex patient more than 50% of the time was spent in counseling and care coordination. Objective - Vital Signs Vital signs: Vital Signs Temp 97.8 F 08/03/21 10:38 Pulse 63 08/03/21 10:38 Resp 18 08/03/21 10:38 BP 153/71 08/03/21 10:38 Pulse Ox 94 L 08/03/21 10:38 Intake & Output 08/02/21 08/03/21 08/03/21 18:59 06:59 18:59 Output Total 500 500 Balance -500 -500 Weight 72.575 kg 72.575 kg Output: Urine 500 500 Other: # Voids 3 - Labs CBC & Chem 7: 08/02/21 16:26 04/06/22 05:44 Labs: Abnormal Lab Results - Last 24 Hours (Table) 08/02/21 08/02/21 08/03/21 Range/Units 16:26 16:26 05:44 D-Dimer 1.17 H (<0.60) mg/L FEU Potassium 3.2 L 3.3 L (3.5-5.1) mmol/L Chloride 95 L (98-107) mmol/L Carbon Dioxide 33 H 30.2 H (22-30) mmol/L BUN 23 H (9-20) mg/dL BUN/Creatinine Ratio 20.27 H (12.00-20.00) Ratio
[2021-08-03] MEDS: METOPROLOL TARTRATE 12.5 MG TAB PO SCH (20:46)
[2021-08-04] MEDS: FUROSEMIDE 10 MG/ML 4 ML VIAL IV SCH (05:27)
[2021-08-04 07:45] VITALS: BP 123/75; RESP 16; TEMP 97.4
[2021-08-04] MEDS: ATORVASTATIN 40 MG TAB PO SCH (08:02)
[2021-08-04] MEDS: PANTOPRAZOLE 40 MG TABLET PO SCH (08:02)
[2021-08-04] MEDS: HEPARIN SODIUM,PORCINE/PF 5,000 UNIT/0.5 ML SYRINGE SQ SCH (08:02)
[2021-08-04] MEDS: METOPROLOL TARTRATE 12.5 MG TAB PO SCH (08:02)
[2021-08-04] MEDS: ASPIRIN 325 MG TAB PO SCH (08:02)
[2021-08-04] MEDS: CLOPIDOGREL 75 MG TAB PO SCH (08:02)
[2021-08-04] MEDS: IPRATROPIUM 0.5 MG/2.5 ML NEBU INHALATION SCH ×2 (08:07→11:19)
[2021-08-04] MEDS: SYMBICORT 160-4.5 MCG INHALER INHALATION SCH (08:08)
[2021-08-04 09:10] LABS: HCT 44.3 % (39.6-50.0); HGB 14.4 g/dL (13.0-17.0); MCH 29.9 pg (27.0-32.0); MCHC 32.5 g/dL (32.0-37.0); MCV 92.1 fL (80.0-97.0); Mean Platelet Volume 11.8 fL (9.5-12.2); NRBC Per 100 WBC 0 /100 WBCS (0.0-0.0); Platelet Count 162 X 10*3/uL (140-440); RBC 4.81 X 10*6/uL (4.40-5.60); RDW 13.5 % (11.5-14.5); WBC 6.41 X 10*3/uL (4.50-10.00)
[2021-08-04 09:18] LABS: African American GFR (CKD) 70.1 (60.0-200.0); Albumin 4.2 g/dL (3.8-4.9); Albumin/Globulin Ratio 1.75 (1.60-3.17); Anion Gap 12.2 mmol/L (10.00-18.00); BUN/Creat Ratio 22.64 Ratio (12.00-20.00); Blood Urea Nitrogen 24.9 mg/dL (9.0-27.0); Calcium 9.5 mg/dL (8.7-10.3); Carbon Dioxide 30.8 mmol/L (20.0-27.5); Globulin 2.4 g/dL (1.6-3.3); Magnesium 2.1 mg/dL (1.5-2.4); Non-African American GFR(CKD) 60.5 (60.0-200.0); Potassium 3.9 mmol/L (3.5-5.5); Total Bilirubin 0.5 mg/dL (0.30-1.20); Total Protein 6.6 g/dL (6.2-8.2)
--- NOTE | 2021-08-04 10:20 | P.PN ---
Subjective Progress Note Date: 08/04/21 HISTORY OF PRESENT ILLNESS: This is a 86-year-old male with a past medical history significant for hypertension, hyperlipidemia, GERD, congestive heart failure, and coronary artery disease with previous CABG 2 vessels (patient thinks 2-3 years ago). Patient follows in the office with Dr. Hunt in [place]. We have been asked to see the patient in consultation for congestive heart failure. Patient examined at the bedside. Patient states over the past 2-3 days he has been feeling short of breath. He states his shortness of breath is only with exertion. He denies having any chest pain or pressure. Denies any fever or chills. He also reports he has been feeling lightheaded and dizzy. He denies any syncopal episodes. The patient reports he has been drinking adequate water however he also reports drinking a lot of coffee over the past few days. He also believes that he has had increased salt intake over the past week. He does report having some increased lower extremity edema and states he started taking his Lasix again one week ago when he noticed some increased swelling in his ankles. Patient states he takes a diuretic at home. He believes that it is Lasix. He is unsure of the dosage however. He states he only takes this as needed and does not take it daily. 6 * EKG reveals sinus mechanism with PVCs * Chest xray chronic changes and cardiomegaly without new acute pulmonary process * Chest CTA: No evidence for acute pulmonary embolism. Moderate emphysematous and cardia megaly with small to tiny left pleural effusion and/or pleural thickening. No acute pulmonary process * Laboratory data: WBC 7.0. Hemoglobin 14.8. Platelet count 170. D-dimer 1. 17. Sodium 138. Potassium 3.2. BUN 23. Creatinine 0.96. Lactic acid 1.4. Troponin negative 3. ProBNP 2039. * Current home cardiac medications include Lipitor 40 mg daily, Plavix 75 mg daily, metoprolol tartrate 12.5 mg twice a day. Patient also reports taking a water pill at home as needed but he is unsure of the name or the dosage. 08/04/2021 Patient examined this morning at the bedside. Patient denies chest pain or pressure. Patient denies shortness of breath. Patient remains on IV Lasix. Echocardiogram completed revealing ejection fraction 35-40%, basal inferior, basal inferior septal, mid inferior, and apical inferior LV wall hypokinesis, [id number] aortic regurgitation, mild MR, and mild TR. PHYSICAL EXAM: VITAL SIGNS: Reviewed. GENERAL: Well-developed in no acute distress. HEENT: Head is normocephalic. Pupils are equal, round. Sclerae anicteric. Mucous membranes of the mouth are moist. Neck supple. No JVD or thyromegaly LUNGS: Respirations even and unlabored. Lungs diminished bilaterally HEART: Regular rate and rhythm. S1 and S2 heard. Systolic murmur noted. ABDOMEN: Soft. Nondistended. Nontender. EXTREMITIES: Normal range of motion. No clubbing or cyanosis. Peripheral pulses intact. Trace lower extremity edema NEUROLOGIC: Awake and alert. Oriented x 3. ASSESSMENT: Dizziness Exertional shortness of breath Acute on chronic congestive heart failure, with reduced EF Coronary artery disease with previous CABG 2 vessels Hypertension Hyperlipidemia Hypokalemia Elevated d-dimer, CT negative for PE PLAN: Await records from patient's primary artificial intelligence specialist Discontinue IV Lasix Begin oral Lasix 40 mg daily Continue additional cardiac medications Patient may be discharged home this afternoon from a cardiac standpoint and follow up with his primary artificial intelligence specialist Nurse practitioner note has been reviewed by physician. Signing provider agrees with the documented findings, assessment, and plan of care. Objective - Vital Signs Vital signs: Vital Signs Temp 97.4 F L 08/04/21 07:00 Pulse 98 08/04/21 08:18 Resp 16 08/04/21 07:00 BP 123/75 08/04/21 07:00 Pulse Ox 94 L 08/04/21 07:00 Intake & Output 08/03/21 08/04/21 08/04/21 18:59 06:59 18:59 Intake Total 480 118 Output Total 500 Balance -20 118 Weight 70.806 kg Intake: Oral 480 118 Output: Urine 500 Other: # Voids 2 - Labs CBC & Chem 7: 08/04/21 05:08 08/04/21 05:08 Labs: Abnormal Lab Results - Last 24 Hours (Table) 08/04/21 Range/Units 05:08 Carbon Dioxide 30.8 H (20.0-27.5) mmol/L BUN/Creatinine Ratio 22.64 H (12.00-20.00) Ratio
[2021-08-04 11:31] VITALS: PULSE 90
--- NOTE | 2021-08-04 13:45 | P.DS ---
Providers Date of admission: 08/02/21 19:15 Expected date of discharge: 08/04/21 Attending physician: Paul Villatoro MD Consults: 08/02/21 19:15 Consult Physician Routine Consulting Provider: Alejandrina Alanis Consult Reason/Comments: CHF, PVCs, exertional dyspnea Do you want consulting provider notified?: Yes Primary care physician: Dimitry Barajas MD Hospital Course: Discharge Diagnosis: Acute exacerbation of chronic systolic heart failure EF of 35-40%, patient started on Lasix 40 mg daily. Generalized Fatigue and dizziness Coronary artery disease status post CABG 2 and ICD placement Hypertension Hyperlipidemia Hypokalemia Elevated d-dimer, CTA negative for pulmonary emboli Hospital Course: Patient is a very pleasant 86-year-old male with a past medical history of CAD status post CABG and ICD placement, hypertension, hyperlipidemia, and COPD not on home oxygen dependent. He presented to the emergency department with a chief complaint of fatigue and worsening shortness of breath with exertion. Patient reported this began approximately 3-4 days ago and progressively worsened. Patient denied experiencing any shortness of breath at rest or any other complaints including cough, congestion, sore throat, headache, lightheadedness, dizziness, fevers, chills, diaphoresis, chest pain, palpitations, nausea, or vomiting. In the emergency department he was seen and fully evaluated. Chest x-ray was completed showing chronic changes and cardiomegaly negative for acute cardiopulmonary process. EKG revealing normal sinus rhythm at 77 bpm with frequent PVCs. Labs obtained with CBC unremarkable, BMP revealing hypokalemia with potassium of 3.2 hypochloremia with chloride of 95, and hypercarbia with carbon dioxide of 33. D-dimer was elevated at 1.17 and troponin was negative at less than 0.012. ProBNP elevated at 0. CTA of chest negative for pulmonary emboli showing moderate emphysematous changes and cardiomegaly. Patient was admitted under our services with consultation to cardiology. Echocardiogram completed revealing moderately impaired EF of 35-40% with diffuse left ventricular hypokinesis, moderately dilated left atrium, moderate aortic valve sclerosis, and mild to moderate aortic regurgitation. Patient underwent diuresis and reports feeling great. Patient states he feels much better than he felt upon arrival. He denies having any complaints or concerns at this time including headache, lightheadedness, dizziness, chest pain, palpitations, shortness of breath, nausea, or weakness. Patient is medically stable. Cardiology recommending patient follow-up outpatient. Patient to continue daily Lasix 40 mg orally. Prescription also sent for BMP and magnesium to monitor renal function and electrolytes since beginning diuretic, results to be sent to PCP and cardiology for follow-up. Patient medically stable for discharge at th is time. Physical exam: Vital signs reviewed and stable. General: Nontoxic, no distress and appears stated age. Derm: Skin warm and dry, normal coloration for ethnicity. Head: Atraumatic, normocephalic and symmetric. Eyes: EOMs intact, no lid lag, and anicteric sclera Mouth: no lip lesions, mucus membranes moist Cardiovascular: regular rate and rhythm with normal S1S2, systolic murmur, positive posterior tibial pulses bilaterally, and cap refill < 2 seconds. ICD left anterior chest. Lungs: Respirations even, regular, and unlabored on room air. Lungs CTA bilaterally, no rhonchi, no rales, no wheezing, and no accessory muscle usage. Abdominal: soft, nontender to palpation, no guarding, no appreciable organomegaly Ext: ROM intact. No gross muscle atrophy, no edema, no contractures Neuro: Speech clear, face symmetrical and CN II-XII grossly intact with no noted focal neuro deficits Psych: Alert and oriented to person, place, time, and situation. Appropriate and pleasant affect. A total of 41 minutes of time were spent preparing this complex discharge summary. Patient Condition at Discharge: Stable Plan - Discharge Summary Discharge Rx Participant: No New Discharge Prescriptions: New Furosemide [Lasix] 40 mg PO DAILY 30 Days #30 tab Continue Pantoprazole [Protonix] 40 mg PO DAILY HYDROcodone/APAP 5-325MG [Chelsea 5-325] 1 tab PO Q8H PRN PRN Reason: Pain Mometasone/Formoterol [Dulera 200 Mcg-5 Mcg Inhaler] 2 puff INHALATION RT-BID Albuterol Inhaler [Ventolin Hfa Inhaler] 2 puff INHALATION RT-QID PRN PRN Reason: Shortness Of Breath Albuterol Nebulized [Ventolin Nebulized] 2.5 mg INHALATION RT-Q6H PRN PRN Reason: Shortness Of Breath Metoprolol Tartrate [Lopressor] 12.5 mg PO BID Aspirin EC [Ecotrin] 325 mg PO DAILY Clopidogrel [Plavix] 75 mg PO DAILY Fluticasone/Umeclidin/Vilanter [Trelegy Ellipta 100-62.5-25] 1 puff INHALATION RT-DAILY Atorvastatin [Lipitor] 40 mg PO DAILY Discharge Medication List Albuterol Inhaler [Ventolin Hfa Inhaler] 2 puff INHALATION RT-QID PRN 08/02/21 [History] Albuterol Nebulized [Ventolin Nebulized] 2.5 mg INHALATION RT-Q6H PRN 08/02/21 [History] Aspirin EC [Ecotrin] 325 mg PO DAILY 08/02/21 [History] Atorvastatin [Lipitor] 40 mg PO DAILY 08/02/21 [History] Clopidogrel [Plavix] 75 mg PO DAILY 08/02/21 [History] Fluticasone/Umeclidin/Vilanter [Trelegy Ellipta 100-62.5-25] 1 puff INHALATION RT-DAILY 08/02/21 [History] HYDROcodone/APAP 5-325MG [Chelsea 5-325] 1 tab PO Q8H PRN 08/02/21 [History] Metoprolol Tartrate [Lopressor] 12.5 mg PO BID 08/02/21 [History] Mometasone/Formoterol [Dulera 200 Mcg-5 Mcg Inhaler] 2 puff INHALATION RT-BID 08/02/21 [History] Pantoprazole [Protonix] 40 mg PO DAILY 08/02/21 [History] Furosemide [Lasix] 40 mg PO DAILY 30 Days #30 tab 08/04/21 [Rx] Follow up Appointment(s)/Referral(s): Dimitry Barajas MD [Primary Care Provider] - 1-2 days Laura Patel MD [STAFF PHYSICIAN] - 2 Weeks Emani Quezada MD [STAFF PHYSICIAN] - 1 Week Ambulatory/Diagnostic Orders: Basic Metabolic Panel [LAB.AMB] Time Frame: 3 Days, Location: None Selected Magnesium [LAB.AMB] Location: None Selected Patient Instructions/Handouts: Heart Failure (DC), Dyspnea (DC) Activity/Diet/Wound Care/Special Instructions: Activity: As tolerated. Take breaks as needed. Diet: Heart healthy and carb consistent diet. Avoid salts, or foods with hidden salts such as canned or boxed foods and frozen dinners. Extra salt makes your heart work harder and traps the fluid in your body for longer. Special Instructions: Weigh yourself every morning after you urinate. If you gain 3 pounds overnight or more than 5 pounds in one week, call your primary physician and ed transporter for guidance on your medications or they may want to see you in their office. Keep a daily log of your weights and be sure to bring with you at follow up visits with your PCP and ed transporter. Take all of your medications as directed, especially your water pills. NEVER sk ip a dose. And remember to keep all of your doctor's appointments and follow-up as needed. Elevate your legs when you are not up moving around to help with circulation and prevent swelling. Call your primary care provider and ed transporter if you notice any extra swelling in your legs, ankles, feet or abdomen, if you have a new dry cough, if your shortness of breath worsens with activity or at rest, or if you feel more fatigued. Thank you for allowing us to participate in your care, it was truly a pleasure having you for our patient!!! Discharge Disposition: HOME SELF-CARE
[2021-08-05] MEDS ORDERED: FUROSEMIDE 40 MG TAB PO SCH (09:00)
== END 2021-08-04 14:37 | disposition home or self-care (01) ==
LOC: EC 14:53 → 6NMEDSUR 19:15 → INTOOBSV 08-03 17:25 → OBSVTOIN 08-03 17:25 → UNDODISIN 08-04 14:37 → UNDODISOB 08-04 14:37
PROVIDERS: ADMIT Internal Medicine; ATTEND Internal Medicine
DX: I11.0 Hypertensive heart disease with heart failure (principal); I50.23 Acute on chronic systolic (congestive) heart failure; I25.10 Atherosclerotic heart disease of native coronary artery without angina pectoris; E78.5 Hyperlipidemia, unspecified; E87.6 Hypokalemia; J44.9 Chronic obstructive pulmonary disease, unspecified; I08.3 Combined rheumatic disorders of mitral, aortic and tricuspid valves; I49.3 Ventricular premature depolarization; R79.89 Other specified abnormal findings of blood chemistry; E87.8 Other disorders of electrolyte and fluid balance, not elsewhere classified; R06.89 Other abnormalities of breathing; K21.9 Gastro-esophageal reflux disease without esophagitis; M54.50 Low back pain, unspecified; Z87.891 Personal history of nicotine dependence; Z95.1 Presence of aortocoronary bypass graft; Z95.810 Presence of automatic (implantable) cardiac defibrillator; Z71.9 Counseling, unspecified; Z79.899 Other long term (current) drug therapy; Z79.82 Long term (current) use of aspirin; Z79.01 Long term (current) use of anticoagulants; Z79.51 Long term (current) use of inhaled steroids; Z82.49 Family history of ischemic heart disease and other diseases of the circulatory system; Z80.0 Family history of malignant neoplasm of digestive organs
CPT/HCPCS: 96376 ×3; 96372 ×3; 96365; 96366 ×2; 96375; 99291; 36415; 94640 ×4; 93005; 93306; 85379; 83880; 80053 ×2; 80048; 83605; 83735 ×2; 84484; 85025; 85027; 85610; 85730; 71046; 71275; G0378 ×3; J1940 ×3; J3480; Q9967; J1644 ×2; 99285